=== PATIENT | female | born 1955 | race Caucasian/White ===

== ENCOUNTER 2018-11-23 18:04 | Emergency (ER) | payer BC ==
[~2018-11-23] VITALS: Ht 162.6 cm; Wt 90.3 kg
[2018-11-23 18:33] VITALS: BP 127/76
--- NOTE | 2018-11-23 18:40 | NUR ---
PATIENT PRESENTS TO ED WITH C/O MOUTH PAIN TO RT SIDE OF JAW SINCE SATURDAY. PATIENT STATES PAIN OF 7/10 AT THIS TIME; VSS; PATIENT POSITIONED FOR COMFORT; HOB ELEVATED; BEDRAILS UP X2; BED DOWN. ER MD MADE AWARE OF PT STATUS.
--- NOTE | 2018-11-23 19:13 | NUR ---
RECIEVED REPORT FROM MUNIR OLMOS. ASSUMED CARE AT THIS TIME.
--- NOTE | 2018-11-23 19:33 | NUR ---
DR. HAGAN AT BEDSIDE FOR PT EVALUATION. INTERPRETOR TEIDA ([id number]) USED.
[2018-11-23] MEDS ORDERED: BUPIVACAINE-MPF 0.25% 30 ML VIAL INJ ONE ×2 (19:55→21:36)
[2018-11-23] MEDS ORDERED: KETOROLAC 15 MG/ML VIAL IM ONE (19:55)
[2018-11-23 20:36] LABS: BASOPHILS % (AUTO) 0.5 % (0.0-2.0); EOSINOPHILS # (AUTO) 0.3 K/uL (0-0.4); EOSINOPHILS % (AUTO) 3.5 % (0.0-4.0); HEMATOCRIT 44.9 % (36-48); HEMOGLOBIN 14.8 g/dL (12.0-16.0); LYMPHOCYTES # (AUTO) 3.1 K/uL (2.5-16.5); LYMPHOCYTES % (AUTO) 41.3 % (20.5-51.1); MEAN CORPUSCULAR HEMOGLOBIN 27 pg (27-31); MEAN CORPUSCULAR HGB CONC 33 g/dL (33-37); MEAN CORPUSCULAR VOLUME 82.5 fL (80-94); MONOCYTES # (AUTO) 0.5 K/uL (0.8-1.0); MONOCYTES % (AUTO) 6.5 % (1.7-9.3); NEUTROPHILS # (AUTO) 3.6 K/uL (1.8-7.7); NEUTROPHILS % (AUTO) 48.2 % (42.2-75.2); PLATELET COUNT (AUTO) 247 K/uL (140-450); RED BLOOD CELL COUNT(AUTO) 5.44 MIL/uL (4.20-5.40); RED CELL DISTRIBUTION WIDTH 13.8 % (11.6-13.7); WHITE BLOOD COUNT (AUTO) 7.5 K/uL (4.8-10.8)
[2018-11-23 21:20] LABS: ALBUMIN 4.4 g/dL (3.4-5.0); ANION GAP 12.6 (8-16); CREATININE 0.9 mg/dL (0.6-1.3); POTASSIUM 3.6 mmol/L (3.5-5.1); TOTAL BILIRUBIN 0.5 mg/dL (0.0-1.0)
--- NOTE | 2018-11-23 21:48 | NUR ---
PT TAKEN TO CT
--- NOTE | 2018-11-23 22:01 | NUR ---
PT RETURN FROM CT
[2018-11-23 22:46] VITALS: BP 152/80
--- NOTE | 2018-11-24 00:18 | NUR ---
Patient discharged with v/s stable. Written and verbal after care instructions given and explained. Patient alert, oriented and verbalized understanding of instructions. Ambulatory with steady gait. All questions addressed prior to discharge. ID band removed. Patient advised to follow up with PMD. Rx of penicllin given. Patient educated on indication of medication including possible reaction and side effects. Opportunity to ask questions provided and answered.
== END 2018-11-24 00:18 | disposition home or self-care (01) ==
LOC: MED 18:04
DX: K02.9 Dental caries, unspecified (principal); H92.01 Otalgia, right ear
CPT/HCPCS: 36415; 70491; 80053; 85025; 96372; 99284; J1885; J3490; Q9967

== ENCOUNTER 2020-12-30 11:14 | Emergency (ER) | payer BC, OTHER ==
[~2020-12-30] VITALS: Ht 139.7 cm; Wt 93.0 kg
--- NOTE | 2020-12-30 11:16 | NUR ---
called pt name in lobby, no response
[2020-12-30 11:24] VITALS: BP 152/77
--- NOTE | 2020-12-30 12:42 | NUR ---
PT AMBULATED TO ER BED 12 WITH A STEADY GAIT.
--- NOTE | 2020-12-30 12:52 | NUR ---
DR EATON AT BESIDE EXAMINING PT
--- NOTE | 2020-12-30 13:06 | NUR ---
65 Y/O F BIB SELF FORM HOME, ABD PAIN SINCE LAST NIGHT WITH N&V, BLOATING AND DIARRHEA. DENIES DYSURIA OR HEMATURIA. HYPERACTIVE BOWEL SOUNDS. SOFT NON TENDER. PT STATES 2/10 PAIN. PMH: DM2, HYPERLIPIDEMIA, HTN NKA MED: IMODIUM 2MG 2 PO
--- NOTE | 2020-12-30 13:10 | NUR ---
PT TAKEN TO CT SCAN VIA W/C
--- NOTE | 2020-12-30 13:18 | NUR ---
PT RETURNED FROM CT SCAN
--- NOTE | 2020-12-30 13:32 | NUR ---
BLOOD LABS COLLECTED AND SENT TO LAB
[2020-12-30 13:36] LABS: BASOPHILS % (AUTO) 0.2 % (0.0-2.0); EOSINOPHILS # (AUTO) 0.1 K/uL (0-0.4); EOSINOPHILS % (AUTO) 1.9 % (0.0-4.0); HEMATOCRIT 45.3 % (36-48); HEMOGLOBIN 14.9 g/dL (12.0-16.0); LYMPHOCYTES # (AUTO) 0.8 K/uL (2.5-16.5); LYMPHOCYTES % (AUTO) 11.2 % (20.5-51.1); MEAN CORPUSCULAR HEMOGLOBIN 27 pg (27-31); MEAN CORPUSCULAR HGB CONC 33 g/dL (33-37); MONOCYTES # (AUTO) 0.4 K/uL (0.8-1.0); MONOCYTES % (AUTO) 5.4 % (1.7-9.3); NEUTROPHILS # (AUTO) 6.1 K/uL (1.8-7.7); NEUTROPHILS % (AUTO) 81.3 % (42.2-75.2); PLATELET COUNT (AUTO) 214 K/uL (140-450); RED BLOOD CELL COUNT(AUTO) 5.45 MIL/uL (4.20-5.40); RED CELL DISTRIBUTION WIDTH 13.7 % (11.6-13.7); WHITE BLOOD COUNT (AUTO) 7.5 K/uL (4.8-10.8)
[2020-12-30 13:42] LABS: APPEARANCE,URINE CLEAR (CLEAR); BILIRUBIN,URINE NEGATIVE (NEGATIVE); BLOOD, URINE TRACE-I (NEGATIVE); COLOR,URINE YELLOW (YELLOW); LEUKOCYTE ESTERASE ,URINE NEGATIVE (NEGATIVE); NITRITE, URINE NEGATIVE (NEGATIVE); UGLUCOSE NEGATIVE (NEGATIVE)
[2020-12-30 13:50] LABS: ALBUMIN 4.2 g/dL (3.4-5.0); ANION GAP 9.3 (8-16); CREATININE 0.7 mg/dL (0.6-1.3); POTASSIUM 4.3 mmol/L (3.5-5.1); TOTAL BILIRUBIN 0.8 mg/dL (0.0-1.0)
[2020-12-30 13:53] LABS: RBC,URINE 0-5 /HPF (0-5); WBC,URINE 0-5 /HPF (0-5)
[2020-12-30] MEDS ORDERED: IBUP-2230 PO (15:42)
[2020-12-30] MEDS ORDERED: ACET-10509 PO (15:42)
[2020-12-30] MEDS ORDERED: ONDA-24 SL (15:42)
[2020-12-30 15:54] VITALS: BP 149/79
--- NOTE | 2020-12-30 15:54 | NUR ---
Patient discharged with v/s stable. Written and verbal after care instructions given and explained. Patient alert, oriented and verbalized understanding of instructions. Ambulatory with steady gait. All questions addressed prior to discharge. ID band removed. Patient advised to follow up with PMD. Rx of TYLENOL EXTRA STRENGTH, IBUPROFEN, ZOFRAN given. Patient educated on indication of medication including possible reaction and side effects. Opportunity to ask questions provided and answered.
== END 2020-12-30 15:54 | disposition home or self-care (01) ==
LOC: MED 11:14
DX: R10.9 Unspecified abdominal pain (principal); R19.7 Diarrhea, unspecified; E11.9 Type 2 diabetes mellitus without complications; I10 Essential (primary) hypertension; Z90.49 Acquired absence of other specified parts of digestive tract
CPT/HCPCS: 36415; 80053; 81001; 83690; 85025; 99284